=== PATIENT | male | born 1975 | race Caucasian/White ===

== ENCOUNTER 2017-05-13 09:41 | Emergency (ER) | payer SELFPAY ==
[~2017-05-13] VITALS: Ht 182.9 cm; Wt 98.0 kg
[2017-05-13 09:44] VITALS: BP 147/84; PULSE 98; RESP 20; TEMP 97.9; O2SAT 98
[2017-05-13] MEDS ORDERED: SODIUM CHLORIDE 0.9% FLUSH 10 ML FLUSH IVF PRN (10:15)
[2017-05-13] MEDS ORDERED: DEXAMETHASONE SOD PHOS 4 MG/ML VIAL IM ONE (10:15)
[2017-05-13 10:17] VITALS: O2SAT 95
[2017-05-13] MEDS ORDERED: AZIT250T3 PO (10:57)
[2017-05-13] MEDS ORDERED: ALBUAER3 INH (10:57)
--- NOTE | 2017-05-13 10:58 | PD ---
HPI Chief Complaint: Respiratory Symptoms Time Seen by Provider: 09:54 Travel History International Travel<30 days: No Contact w/Intl Traveler<30days: No Traveled to known affect area: No History of Present Illness HPI 42-year-old male complains of chest pain shortness of breath rhinorrhea and postnasal drip cephalgia. He reports rhinorrhea and postnasal drip has been present for a few days and improved today however he reports some shortness of breath. His notes audible wheezing at night. Occasional cough reported. The patient smokes cigarettes. He has no family history of coronary artery disease, personal history of coronary artery disease or history of hyperlipidemia diabetes or hypertension. Cephalgia is on the left forehead with a pressure-like quality. Onset gradual. PFSH Past Medical History Diminished Hearing: No Kidney Stones: Yes Influenza Vaccination: No Past Surgical History Surgical History: No Previous Surgery Oral Surgery: Yes ([place] tooth extraction 2014) Social History Alcohol Use: No Tobacco Use: Yes (1 PPD) Substance Use: No Allergies-Medications (Allergen,Severity, Reaction): Coded Allergies: No Known Allergies (Unverified , 05/13/17) Reported Meds & Prescriptions Reported Meds & Active Scripts Active Proair Hfa 8.5 GM Inh (Albuterol Sulfate) 90 Mcg/Act Aer 2 Puff INH Q6H PRN 108 mcg/actuation Azithromycin 250 Mg Tab 250 Mg PO DIRECTED Take 2 tabs (500 mg) on day 1 then 1 tab daily x 4 days. Review of Systems Except as stated in HPI: all other systems reviewed are Neg Physical Exam Narrative GENERAL: Well-nourished well-developed 42-year-old male speaking full sentences SKIN: Warm and dry. HEAD: Atraumatic. Normocephalic. EYES: Pupils equal and round. No scleral icterus. No injection or drainage. ENT: No nasal bleeding or discharge. Mucous membranes pink and moist. NECK: Trachea midline. No JVD. CARDIOVASCULAR: Regular rate and rhythm. RESPIRATORY: Wheezing present bilaterally. No significant tachypnea or accessory muscle use. GASTROINTESTINAL: Abdomen soft, non-tender, nondistended. Hepatic and splenic margins not palpable. MUSCULOSKELETAL: Extremities without clubbing, cyanosis, or edema. No obvious deformities. NEUROLOGICAL: Awake and alert. No obvious cranial nerve deficits. Motor grossly within normal limits. Five out of 5 muscle strength in the arms and legs. Normal speech. PSYCHIATRIC: Appropriate mood and affect; insight and judgment normal. Data Data Last Documented VS Vital Signs Date Time Temp Pulse Resp B/P (MAP) Pulse Ox O2 Delivery O2 Flow Rate FiO2 05/13/17 10:17 95 Room Air 05/13/17 09:52 85 05/13/17 09:44 97.9 20 Orders Orders Oximetry (05/13/17 10:11) Oxygen Administration (05/13/17 10:11) Sodium Chloride 0.9% Flush (Ns Flush) (05/13/17 10:15) Albuterol-Ipratropium Neb (Duoneb Neb) (05/13/17 10:15) Dexamethasone Inj (Decadron Inj) (05/13/17 10:15) MDM Medical Decision Making Medical Screen Exam Complete: Yes Emergency Medical Condition: Yes Differential Diagnosis Pneumonia, bronchitis, asthma, COPD, acute coronary syndrome Narrative Course The patient received 2 rounds of albuterol and an injection of Decadron. Upon reassessment at 11:15 AM he reports near complete resolution of shortness of breath and chest tightness. In this setting considerations given to inflammatory process possibly infectious. He'll go home with albuterol prescription and azithromycin. Return precautions discussed. Diagnosis Primary Impression: Wheezing Additional Impression: Chest pain Qualified Codes: R07.9 - Chest pain, unspecified Referrals: Primary Care Physician call for appointment Additional Instructions: You have a choice when it comes to health care, and we are glad that you chose [facility]. Hopefully, we have met your expectations on today's visit. You are welcome to return to [facility] at any time, as we are committed to meeting the health care needs of our community. Med/Other Pt SpecificInfo: Prescription(s) given Scripts Albuterol 8.5 GM Inh (Proair Hfa 8.5 GM Inh) 90 Mcg/Act Aer 2 PUFF INH Q6H Y for SHORTNESS OF BREATH, #1 INHALER 0 Refills 108 mcg/actuation Prov: Robert Roman MD 05/13/17 Azithromycin (Azithromycin) 250 Mg Tab 250 MG PO DIRECTED for Infection, #6 TAB 0 Refills Take 2 tabs (500 mg) on day 1 then 1 tab daily x 4 days. Prov: Robert Roman MD 05/13/17 Disposition: 01 DISCHARGE HOME Condition: Stable Robert Roman MD May 13, 2017 10:58
[2017-05-13] MEDS: RESP: ALBUTEROL 2.5 MG/IPRATROPIUM 0.5 MG NEB (SCH) INH (11:05)
== END 2017-05-13 11:45 | disposition home or self-care (01) ==
LOC: NEPC 09:41
DX: R07.9 Chest pain, unspecified (principal); R06.2 Wheezing; J34.89 Other specified disorders of nose and nasal sinuses; R09.82 Postnasal drip; R51 Headache; R06.02 Shortness of breath; F17.210 Nicotine dependence, cigarettes, uncomplicated
CPT/HCPCS: 94640; 94664; 99284; J1100